=== PATIENT | female | born 1945 | race Caucasian/White ===

== ENCOUNTER 2018-11-05 05:21 | Inpatient (IN) ==
--- NOTE | 2018-10-28 15:57 | PAT Medication Instructions ---
Medication Instructions Date of Service October 29, 2018 Home Medications acetaminophen [Tylenol Arthritis Pain] 1,300 mg PO Q12H aspirin [Aspirin Low Dose] 81 mg PO HS atorvastatin 20 mg PO QAM calcium carbonate-vitamin D3 [Calcium 600 + D(3)] 1 cap PO BID celecoxib 200 mg PO QAM celecoxib [Celebrex] 200 mg PO HS fluticasone propion-salmeterol [Advair Diskus] 1 inh INHALATION Q12H hydrochlorothiazide 25 mg PO QAM montelukast 10 mg PO PM multivitamin 1 tab PO QAM olmesartan 40 mg PO QAM omeprazole 20 mg PO QAM ropinirole 2 mg PO HS ASK your surgeon for instructions aspirin [Aspirin Low Dose] 81 mg PO HS celecoxib 200 mg PO QAM & celecoxib [Celebrex] 200 mg PO HS STOP taking 24 hours before surgery ropinirole 2 mg PO HS DO NOT take the morning of surgery calcium carbonate-vitamin D3 [Calcium 600 + D(3)] 1 cap PO BID hydrochlorothiazide 25 mg PO QAM multivitamin 1 tab PO QAM olmesartan 40 mg PO QAM Take morning of surgery With a small sip of water, OTHERWISE NOTHING TO EAT OR DRINK AFTER MIDNIGHT: acetaminophen [Tylenol Arthritis Pain] 1,300 mg PO Q12H (if needed, stop 4 hours before surgery) atorvastatin 20 mg PO QAM fluticasone propion-salmeterol [Advair Diskus] 1 inh INHALATION Q12H omeprazole 20 mg PO QAM Take evening before surgery acetaminophen [Tylenol Arthritis Pain] 1,300 mg PO Q12H calcium carbonate-vitamin D3 [Calcium 600 + D(3)] 1 cap PO BID fluticasone propion-salmeterol [Advair Diskus] 1 inh INHALATION Q12H montelukast 10 mg PO PM Other Notes If you have any questions please call us at [phone] or [phone] or [phone] or [phone]
--- NOTE | 2018-10-29 08:27 | Anesthesiology Consultation ---
Date of Service October 29, 2018 Assessment & Plan (1) Encounter for pre-operative examination: - No anesthesia records re: intubation available Chart Review Chart Review: Acceptable Risk for Surgery and Patient seen in Pre Admission Testing Consults Requested none Teaching & Discussion Pre-Anesthesia Teaching/Discussion Notes: Instructed NPO after midnight before surgery, except medications with 15 cc of water. Medication instructions provided according to the PAT guidelines. History Surgery Operation Date: 11/05/18 07:00 Proposed Procedures p Right Patellectomy - Humberto Callahan MD Height/Weight Height: 4 ft 10 in Weight: 86.2 kg Allergies Allergy/AdvReac Type Severity Reaction Status Date / Time No Known Allergies Allergy Verified 10/23/18 11:54 Medications Home Medications Medication Instructions Recorded Confirmed Last Taken acetaminophen [Tylenol Arthritis 1,300 mg PO Q12H 10/23/18 10/23/18 Unknown Pain] aspirin [Aspirin Low Dose] 81 mg PO HS 10/23/18 10/23/18 Unknown atorvastatin 20 mg PO QAM 10/23/18 10/23/18 Unknown calcium carbonate-vitamin D3 1 cap PO BID 10/23/18 10/23/18 Unknown [Calcium 600 + D(3)] celecoxib 200 mg PO QAM 10/23/18 10/23/18 Unknown celecoxib [Celebrex] 200 mg PO HS 10/23/18 10/23/18 Unknown fluticasone propion-salmeterol 1 inh INHALATION Q12H 10/23/18 10/23/18 Unknown [Advair Diskus] hydrochlorothiazide 25 mg PO QAM 10/23/18 10/23/18 Unknown montelukast 10 mg PO PM 10/23/18 10/23/18 Unknown multivitamin 1 tab PO QAM 10/23/18 10/23/18 Unknown olmesartan 40 mg PO QAM 10/23/18 10/23/18 Unknown omeprazole 20 mg PO QAM 10/23/18 10/23/18 Unknown ropinirole 2 mg PO HS 10/23/18 10/23/18 Unknown Past Medical History Medical History DJD (degenerative joint disease) Restless leg syndrome Asthma Chronic pain of right knee D/T ISSUES WITH KNEE REPLACEMENT SURGERY GERD (gastroesophageal reflux disease) Hiatal hernia Hyperlipidemia Hypertension Thyroid nodule RIGHT AND LEFT NON CANCEROUS Exercise / Class Metabolic Activity II 4-5 Yardwork/Stairs/Walk up hill (Limited currently due to knee pain. Able to slowly climb stairs due to knee pain. Denies CP or SOB. ) Past Surgical History Surgical History History of cardiac cath 2006 DONE IN [place] -S/S LIGHTHEADED AND SYNCOPE - NEGATIVE STUDY - S/S WERE MEDICATION RELATED History of carpal tunnel release of both wrists History of colonoscopy History of laser refractive surgery TORN RETINA RIGHT EYE History of left knee replacement 04/22/14: "Very difficult spinal 2/2 scoliosis and arthritis. Paramedian L2-3 approach was successful." History of total right knee replacement Hx of cholecystectomy Hx of total hysterectomy Past Anesthesia History No Hx of Anesthesia Complications and No Family Hx of Anesthesia Complications History of PONV No Hx of PONV and No Hx of Motion Sickness Social History Smoking Status: Former smoker Smoking cigarettes per day: Smoked 10-15 years, ~1ppd or less Do You Dip or Chew Tobacco: No Smoking End Date: 46 YR AGO Hx Alcohol Use: No Hx Substance Use: No Review of Systems Patient denies chest pain, shortness of breath, dyspnea on exertion, cough, wheezing, palpitations. +Joint Pain (Knee, elbows) +Acid Reflux (Controlled with current medication and diet) Physical Exam Vital Signs BP: 116/84 P: 83 R: 16 T: 98.2 SPO2: 97% on RA Constitutional + obese ENMT Thyromental Distance: > or= 3.5 Finger Breadths (3.5) Mallampati Class: II Neck normal visual inspection and trachea midline; neck extension not limited Respiratory normal respiratory effort Auscultation: lungs clear to auscultation bilaterally Cardiovascular Rate/Rhythm: regular rate and regular rhythm Heart Sounds: no murmur Vessels: no carotid bruit Neurologic moves all extremities Psychiatric Orientation: alert and oriented x 3 Testing Laboratory Results 10/29/18 08:42 10/29/18 08:42 PT 10.2 Seconds (9.0-12.0) 10/29/18 08:42 INR 1.0 (0.9-1.1) 10/29/18 08:42 APTT 26.3 Seconds (21.0-31.0) 10/29/18 08:42 Urine Color Yellow 10/29/18 Unknown Urine Appearance Clear (Clear) 10/29/18 Unknown Urine pH 5.0 (4.5-7.5) 10/29/18 Unknown Ur Specific [place] 1.014 (1.000-1.030) 10/29/18 Unknown Urine Protein Negative (Negative) 10/29/18 Unknown Urine Glucose (UA) Negative (Negative) 10/29/18 Unknown Urine Ketones Negative (Negative) 10/29/18 Unknown Urine Nitrite Negative (Negative) 10/29/18 Unknown Ur Leukocyte Esterase Negative (Negative) 10/29/18 Unknown Electrocardiogram Date: 10/29/18 Findings: + NSR @ (75) When compared with ECG of 03/31/15, Criteria for Inferior infarct are no longer present T wave amplitude has increased in anterior leads QT has shortened Chest X-Ray Date: 10/29/18 Findings: + NAD FINDINGS: The bones soft tissues and hemidiaphragms are normal. The cardiomediastinal silhouette is normal. The lungs are clear. The pulmonary vasculature is normal. Fixed hiatal hernia IMPRESSION: Negative chest. Hiatal hernia
--- NOTE | 2018-10-29 09:08 | XRay Report ---
XR chest Pre-admission PA/Lat CLINICAL HISTORY: pat preoperative evaluation COMPARISON STUDY: No previous studies for comparison. FINDINGS: The bones soft tissues and hemidiaphragms are normal. The cardiomediastinal silhouette is n ormal. The lungs are clear. The pulmonary vasculature is normal. Fixed hiatal hernia IMPRESSION: Negative chest. Hiatal hernia The above report was generated using voice recognition software. It may contain grammatical, syntax or spelling errors. Electronically signed by: Derick Walsh M.D. 10/29/2018 9:07 AM
[2018-10-29 11:15] LABS: Appearance Urine Clear (Clear); Bilirubin Urine Negative (Negative); Blood Urine Negative (Negative); Color Urine Yellow; Glucose Urine UA Negative (Negative); Ketones Urine Negative (Negative); Leukocyte Esterase Urine Negative (Negative); Nitrite Urine Negative (Negative); Protein Urine Negative (Negative); Specific Gravity Urine 1.014 (1.000-1.030); Urobilinogen Urine Negative (Negative)
[2018-10-29 11:15] LABS: Eosinophils # (auto) 0.14 K/uL (0-0.5); Eosinophils % (auto) 2.8 %; Hematocrit (blood only) 41.2 % (37-47); Hemoglobin 13.5 g/dL (12.0-16.0); Immature Granulocytes # (auto) 0.01 K/uL (0.00-0.02); Immature Granulocytes % (auto) 0.2 %; Lymphocytes # (auto) 1.69 K/uL (1.2-3.4); Mean Corpuscular Hgb Conc 32.8 g/dL (32-36); Mean Corpuscular Volume 90.9 fL (80-100); Mean Platelet Volume 10.9 fL (7.4-10.4); Monocytes # (auto) 0.47 K/uL (0.11-0.59); Monocytes % (auto) 9.5 %; Neutrophils # (auto) 2.66 K/uL (1.4-6.5); Neutrophils % (auto) 53.5 %; Platelet Count 246 K/uL (130-400); RDW Coefficient of Variation 13.2 % (11.5-14.5); RDW Standard Deviation 43.8 fL (36.4-46.3); Red Blood Count 4.53 M/uL (4.2-5.4); White Blood Count 4.97 K/uL (4.8-10.8)
[2018-10-29 11:26] LABS: BUN Creatinine Ratio 24.5 (10-20); Calcium 9.6 mg/dl (8.5-10.1); Creatinine Clr Calc Pharmacy 55.4 ml/min; Est GFR (African American) 77.2; Est GFR (Non-African American) 66.6; Partial Thromboplastin Time 26.3 Seconds (21.0-31.0); Potassium 4.3 mmol/L (3.5-5.1); Prothrombin Time 10.2 Seconds (9.0-12.0)
--- NOTE | 2018-10-31 09:37 | History & Physical Report ---
Date of Service October 31, 2018 Assessment & Plan (1) Painful total knee replacement, right: Patient has ongoing anterior knee pain 3 years post total knee arthroplasty. She has a trabecular metal patella. She has failed conservative measures as above and would like to proceed with surgical intervention. Treatment options were discussed including revision patella vs patellectomy. Risks, benefits and alternatives to surgery including but not limited to infection, DVT, pain, stiffness, need for revision surgery, damage to blood vessels, damage to nerves, PE, , were discussed with the patient and they wish to proceed. Plan will be for right knee patellectomy. Plan will be for Aspirin 81mg BID x 30 days post operatively. She will plan on outpatient PT upon discharge from the hospital. She will follow up in the office post operatively. Encounter type: subsequent encounter Qualified Code(s): T84.84XD - Pain due to internal orthopedic prosthetic devices, implants and grafts, subse quent encounter; Z96.651 - Presence of right artificial knee joint History of Present Illness Chief Complaint: Right knee anterior knee pain Primary Care Provider: Alex Rosenda 72 year old female with PMHx significant for HTN, GERD, high cholesterol, restless leg, and asthma who presents with ongoing right knee pain. She is 3 years s/p right total knee arthroplasty with trabecular metal patella. She has had ongoing pain since surgery. She is having worsening pain and difficulty with normal daily activity. She has failed conservative measures including pes bursa injections, topical and oral anti-inflammatory medications, radiofrequency ablation, and arthroscopy. She has had a bone scan which was negative for loosening, as well as normal blood work. She would like to proceed with surgical intervention. Patient denies headaches, sweats, fevers, chills, double vision, blurred vision, cough, sore throat, dysphagia, chest pain, sob, wheezing, n/v/d/c, numbness, tingling, fatigue, urinary symptoms, mood disorders. ROS positive for right knee pain and stiffness. Allergies Allergy/AdvReac Type Severity Reaction Status Date / Time No Known Allergies Allergy Verified 10/23/18 11:54 Home Medications Home Medications Medication Instructions Recorded Confirmed Type acetaminophen [Tylenol Arthritis 1,300 mg PO Q12H 10/23/18 10/23/18 History Pain] aspirin [Aspirin Low Dose] 81 mg PO HS 10/23/18 10/23/18 History atorvastatin 20 mg PO QAM 10/23/18 10/23/18 History calcium carbonate-vitamin D3 1 cap PO BID 10/23/18 10/23/18 History [Calcium 600 + D(3)] celecoxib 200 mg PO QAM 10/23/18 10/23/18 History celecoxib [Celebrex] 200 mg PO HS 10/23/18 10/23/18 History fluticasone propion-salmeterol 1 inh INHALATION Q12H 10/23/18 10/23/18 History [Advair Diskus] hydrochlorothiazide 25 mg PO QAM 10/23/18 10/23/18 History montelukast 10 mg PO PM 10/23/18 10/23/18 History multivitamin 1 tab PO QAM 10/23/18 10/23/18 History olmesartan 40 mg PO QAM 10/23/18 10/23/18 History omeprazole 20 mg PO QAM 10/23/18 10/23/18 History ropinirole 2 mg PO HS 10/23/18 10/23/18 History Past Med/Surg History Medical History DJD (degenerative joint disease) Restless leg syndrome Asthma Chronic pain of right knee D/T ISSUES WITH KNEE REPLACEMENT SURGERY GERD (gastroesophageal reflux disease) Hiatal hernia Hyperlipidemia Hypertension Thyroid nodule RIGHT AND LEFT NON CANCEROUS Surgical History History of cardiac cath 2006 DONE IN [place] -S/S LIGHTHEADED AND SYNCOPE - NEGATIVE STUDY - S/S WERE MEDICATION RELATED History of carpal tunnel release of both wrists History of colonoscopy History of laser refractive surgery TORN RETINA RIGHT EYE History of left knee replacement 04/22/14: "Very difficult spinal 2/2 scoliosis and arthritis. Paramedian L2-3 approach was successful." History of total right knee replacement Hx of cholecystectomy Hx of total hysterectomy Social History Preferred Language: Amharic Communication Ability: Effective Beliefs That Will Affect Care: None Current Living Situation: Spouse Feels Safe at Home: Yes Safety Concerns: Feels Safe At This Time Smoking Status: Former smoker Cigarettes Per Day: Smoked 10-15 years, ~1ppd or less Do You Dip or Chew Tobacco: No Smoking End Date: 44 YR AGO Second Hand Exposure: No Hx Alcohol Use: No Hx Substance Use: No Review of Systems All systems reviewed & are unremarkable except as noted in HPI & below Physical Exam Constitutional: well developed and well nourished; no acute distress Eyes: PERRL, conjunctivae normal, anicteric sclerae ENMT: external ear and nose normal, oropharynx normal Neck: trachea midline, no thyromegaly Respiratory: normal respiratory effort, lungs clear to auscultation Cardiovascular: RRR, no murmur, no edema Musculoskeletal: Right knee-Well healed incision. ROM 0-125, diffuse tenderness. Pain with patellar grind. She is stable to valgus and varus stress. Mild extensor lag. Skin: no rashes, warm and dry Neurologic: patellar DTR's 2+ bilat, sensation intact Psychiatric: A+Ox3, euthymic affect Results & Data Laboratory Results Lab Results 10/29/18 10/29/18 10/29/18 Range/Units 08:42 08:42 08:42 WBC 4.97 (4.8-10.8) K/uL RBC 4.53 (4.2-5.4) M/uL Hgb 13.5 (12.0-16.0) g/dL Hct 41.2 (37-47) % MCV 90.9 (80-100) fL MCH 29.8 (25-34) pg MCHC 32.8 (32-36) g/dL RDW Std Deviation 43.8 (36.4-46.3) fL RDW Coeff of Melina 13.2 (11.5-14.5) % Plt Count 246 (130-400) K/uL MPV 10.9 H (7.4-10.4) fL Immature Gran % (Auto) 0.2 % Neut % (Auto) 53.5 % Lymph % (Auto) 34.0 % [place] % (Auto) 9.5 % Eos % (Auto) 2.8 % Baso % (Auto) 0.0 % Immature Gran # (Auto) 0.01 (0.00-0.02) K/uL Neut # (Auto) 2.66 (1.4-6.5) K/uL Lymph # (Auto) 1.69 (1.2-3.4) K/uL [place] # (Auto) 0.47 (0.11-0.59) K/uL Eos # (Auto) 0.14 (0-0.5) K/uL Baso # (Auto) 0.00 (0-0.2) K/uL PT 10.2 (9.0-12.0) Seconds INR 1.0 (0.9-1.1) APTT 26.3 (21.0-31.0) Seconds PTT Ratio 1.0 Sodium 141 (136-145) mmol/L Potassium 4.3 (3.5-5.1) mmol/L Chloride 106 (98-107) mmol/L Carbon Dioxide 28 (21-32) mmol/L Anion Gap 7.0 (3-11) BUN 22 H (7-18) mg/dl Creatinine 0.88 (0.6-1.2) mg/dl Est Cr Clr Drug Dosing 55.4 ml/min Est GFR ( Amer) 77.2 Est GFR (Non-Af Amer) 66.6 BUN/Creatinine Ratio 24.5 H (10-20) Glucose 88 (70-99) mg/dl Calcium 9.6 (8.5-10.1) mg/dl Urine Color Urine Appearance (Clear) Urine pH (4.5-7.5) Ur Specific [place] (1.000-1.030) Urine Protein (Negative) Urine Glucose (UA) (Negative) Urine Ketones (Negative) Urine Blood (Negative) Urine Nitrite (Negative) Urine Bilirubin (Negative) Urine Urobilinogen (Negative) Ur Leukocyte Esterase (Negative) 10/29/18 Range/Units Unknown WBC (4.8-10.8) K/uL RBC (4.2-5.4) M/uL Hgb (12.0-16.0) g/dL Hct (37-47) % MCV (80-100) fL MCH (25-34) pg MCHC (32-36) g/dL RDW Std Deviation (36.4-46.3) fL RDW Coeff of Melina (11.5-14.5) % Plt Count (130-400) K/uL MPV (7.4-10.4) fL Immature Gran % (Auto) % Neut % (Auto) % Lymph % (Auto) % [place] % (Auto) % Eos % (Auto) % Baso % (Auto) % Immature Gran # (Auto) (0.00-0.02) K/uL Neut # (Auto) (1.4-6.5) K/uL Lymph # (Auto) (1.2-3.4) K/uL [place] # (Auto) (0.11-0.59) K/uL Eos # (Auto) (0-0.5) K/uL Baso # (Auto) (0-0.2) K/uL PT (9.0-12.0) Seconds INR (0.9-1.1) APTT (21.0-31.0) Seconds PTT Ratio Sodium (136-145) mmol/L Potassium (3.5-5.1) mmol/L Chloride (98-107) mmol/L Carbon Dioxide (21-32) mmol/L Anion Gap (3-11) BUN (7-18) mg/dl Creatinine (0.6-1.2) mg/dl Est Cr Clr Drug Dosing ml/min Est GFR ( Amer) Est GFR (Non-Af Amer) BUN/Creatinine Ratio (10-20) Glucose (70-99) mg/dl Calcium (8.5-10.1) mg/dl Urine Color Yellow Urine Appearance Clear (Clear) Urine pH 5.0 (4.5-7.5) Ur Specific [place] 1.014 (1.000-1.030) Urine Protein Negative (Negative) Urine Glucose (UA) Negative (Negative) Urine Ketones Negative (Negative) Urine Blood Negative (Negative) Urine Nitrite Negative (Negative) Urine Bilirubin Negative (Negative) Urine Urobilinogen Negative (Negative) Ur Leukocyte Esterase Negative (Negative) Diagnostic Findings Right knee bone scan-Mayra. Right knee radiographs: cemented total knee arthroplasty in good position, patella stable
[2018-11-05] MEDS ORDERED: LR 500ML BOLUS, THEN 15ML/HR IV SCH (06:00)
[2018-11-05] MEDS ORDERED: CEFAZOLIN 2000MG 2,000 MG/15 ML SYR IV SCH (06:00)
[2018-11-05] MEDS ORDERED: MIDAZOLAM HCL 1 MG/ML 2ML VIAL ONE (06:31)
[2018-11-05] MEDS ORDERED: fentaNYL citrate 100 MCG/2 ML VIAL ONE ×2 (06:31→08:10)
[2018-11-05] MEDS ORDERED: PROPOFOL IV EMULSION 10 MG/ML 20 ML VIAL IV ONE (06:47)
[2018-11-05] MEDS ORDERED: LIDOCAINE HCL 2% 2 ML VIAL/AMP(20MG/ML) INFIL ONE (06:47)
--- NOTE | 2018-11-05 06:54 | History & Physical Bridge Note ---
Date of Service November 05, 2018 History & Physical Bridge Note I have examined the patient, reviewed the History & Physical and in the interval since the performance of the History & Physical I have noted the following changes of clinical significance: no changes noted
[2018-11-05] MEDS ORDERED: ATROPINE SULFATE 0.1 MG/ML 10ML SYR IV PRN (07:12)
[2018-11-05] MEDS ORDERED: KETOROLAC 30 MG/ML VIAL IV PRN (07:12)
[2018-11-05] MEDS ORDERED: ONDANSETRON INJ 2 MG/ML 2 ML VIAL IV PRN ×2 (07:12→10:00)
[2018-11-05] MEDS ORDERED: HYDROmorphone INJ 1 MG/ML SYRINGE IV PRN (07:12)
[2018-11-05] MEDS ORDERED: LABETALOL HCL IV 5 MG/ML 20ML IV PRN (07:12)
[2018-11-05] MEDS ORDERED: BACITRACIN INJ 50,000 UNIT VIAL ONE (07:15)
[2018-11-05] MEDS ORDERED: BUPIVACAINE/EPINEPHRINE 0.5% MPF 1:200,000 30 ML VIAL ONE (07:15)
[2018-11-05] MEDS ORDERED: ROPIVACAINE 0.5% 5 MG/ML 30 ML VIAL ONE (07:36)
[2018-11-05] MEDS ORDERED: ONDANSETRON INJ 2 MG/ML 2 ML VIAL ONE (08:13)
[2018-11-05] MEDS ORDERED: PHENYLEPHRINE 100MCG/ML 5ML SYR ONE (08:18)
--- NOTE | 2018-11-05 08:45 | Operative Report ---
Post Operative Report Pre & Post Diagnosis Operation Date: 11/05/18 08:00 Pre-Op Diagnosis: Painful Patella, s/p Right Total Knee Arthroplasty Post-Op Diagnosis: Loose patellar component Procedure Operation Date: 11/05/18 08:00 Actual Procedures p Right Patellectomy(Right) - Humberto Callahan MD Surgeon Humberto Callahan MD [employer] Agent Flip Syed PA-C Estimated Blood Loss 2 Findings Consistent with Post-Op Diagnosis Specimens none Drains none Anesthesia Type General Regional Complications none Disposition Accompanied Patient To Recovery: No Disposition: Recovery Room Indications The patient is a 73-year-old female who had previously undergone a right total knee arthroplasty. During her arthroplasty her patella bone was relatively soft and while we were drilling for the pegs for her patellar component there was a crack that established between 2 of the drill holes. At the time he did not feel that I would be able to get a stable standard cemented patellar component i nto place. I therefore implanted a trabecular metal backed patella. Her wound healed well. There was never any issues with infection. She had persistent patellofemoral pain. Her infection work-up including sed rate, CRP was negative. On physical exam the patella component felt stable. It appeared to be in good a good stable position on x-ray. She has failed conservative measures including nonsteroidal anti-inflammatories, topical anti-inflammatories and physical therapy. She also underwent arthroscopic debridement with lateral release. She also went through radiofrequency nerve ablation around the knee without relief of her symptoms. We discussed various treatment measures including revision of her patella component versus patellectomy. My concern is that she has already had the revision style patella component that I would use for a revision of the patella. And if this has failed once I would be concerned that she would fail again and continue to have pain. We discussed the loss of strength as well as extension lag that she likely have after a removal of the patella. She voices understanding wishes to proceed. Description of Procedure Risks benefits and alternatives of surgery including but not limited to infection, DVT, pain, stiffness, need for surgery, damage to blood vessels, damage to nerves or risks of anesthesia were discussed with the patient and they wished to proceed. The patient was identified and the laterality was confirmed and marked. They received a preoperative antibiotic as well as a spinal anesthetic and an abductor canal block. A well-padded tourniquet was applied and then the limb was prepped and draped in standard manner with ChloraPrep. The limb was exsanguinated and the tourniquet was inflated. I made a standard anterior incision. I sharply incised the skin then utilized Bovie electrocautery to achieve hemostasis. I identified the FiberWire suture knots that had been used to fix the trabecular metal patella into position. I cut these knots out. I then made a medial parapatellar arthrotomy. There was no purulence in the joint. There was a small amount of normal joint fluid. The patella component appeared to be loose. There was some healing to the tissues on the lateral side but centrally and medially it appeared that the trabecular metal had not ingrown into the tissues. There were a few remaining FiberWire sutures that need to be cut and then I debrided the tissue that was adherent on the lateral side of the patella and then excised the patellar component. The wound was then thoroughly irrigated. A Betadine soak was performed. The arthrotomy was closed with interrupted #1 Vicryl suture. The subcutaneous tissue was closed with interrupted 2-0 Vicryl suture. The skin was closed with mahad. A Silverlon dressing was applied. All needle and sponge counts were correct at the end of the procedure patient was transferred to the PACU in stable condition without apparent complication. The PA-C was necessary for assistance with procedure for assistance in positioning, prepping, draping, retraction and closure. I attest to the content of the Intraoperative Record and any orders documented therein. Any exceptions are noted below.
--- NOTE | 2018-11-05 09:38 | XRay Report ---
XR knee RT 2V routine CLINICAL HISTORY: Postop examination. COMPARISON: 06/23/2015 DISCUSSION: There are postsurgical changes of a total right knee arthroplasty. The patient appears to be status post a patellectomy. There are small calcifications proximal and distal to the expected si te of the patella. There are overlying skin mahad present. There is air within the soft tissues con sistent with recent surgery. IMPRESSION: Total knee arthroplasty. Apparent interval resection of the patella Electronically signed by: Collin Alfaro M.D. 11/05/2018 9:37 AM
--- NOTE | 2018-11-05 09:45 | Anesthesiology Progress Note ---
Date of Service November 05, 2018 Anesthesia Post Procedure Vital Signs Vital Signs: Temp Pulse Pulse Pulse Resp BP BP 11/05/18 09:35 84 16 134/79 11/05/18 09:31 84 12 123/82 11/05/18 09:30 85 17 11/05/18 09:26 85 23 122/83 11/05/18 09:25 84 16 11/05/18 09:20 84 13 145/85 H 11/05/18 09:18 85 14 144/90 H 11/05/18 09:16 85 16 144/90 H 11/05/18 09:15 89 21 11/05/18 09:10 36.4 C L 89 91 H 13 123/78 123/78 11/05/18 06:02 36.8 C 88 20 161/106 H Pulse Ox 11/05/18 09:35 99 11/05/18 09:31 99 11/05/18 09:30 100 11/05/18 09:26 11/05/18 09:25 99 11/05/18 09:20 11/05/18 09:18 100 11/05/18 09:16 100 11/05/18 09:15 11/05/18 09:10 100 11/05/18 06:02 96 Pain Intensity Right Leg: Pain Intensity: 0 Transfer of Care Handoff Completed per policy Notes Mental Status: alert / awake / arousable Patient Amnestic to Procedure: Yes Nausea / Vomiting: adequately controlled Pain: adequately controlled Airway Patency, RR, SpO2: stable & adequate BP & HR: stable & adequate Hydration State: stable & adequate Anesthetic Complications: no major complications apparent
[2018-11-05] MEDS ORDERED: HYDROmorphone INJ 0.5 MG/0.5 ML SYR IV PRN (10:00)
[2018-11-05] MEDS ORDERED: NALOXONE HCL 0.4 MG/1 ML VIAL/CARP IV PRN (10:00)
[2018-11-05] MEDS ORDERED: BISACODYL 10 MG SUPP PR PRN (10:00)
[2018-11-05] MEDS ORDERED: SODIUM CHLORIDE 0.9% 1000ML 1,000 ML IV SCH (10:00)
[2018-11-05] MEDS ORDERED: MAGNESIUM HYDROXIDE SUSP 30 ML UDC PO PRN (10:00)
[2018-11-05] MEDS: OXYCODONE HCL IR 5 MG TAB (IMMEDIATE RELEASE) PO PRN ×2 (11:11→20:46)
[2018-11-05] MEDS: FLUTICASONE/SALMETEROL 250/50 (ADVAIR) 14 PUFF/1 INHALER INH SCH ×2 (11:11→20:44)
[2018-11-05] MEDS: ACETAMINOPHEN 500 MG TAB PO SCH ×2 (14:23→20:43)
[2018-11-05] MEDS: CEFAZOLIN 2000MG 2,000 MG/15 ML SYR IV SCH (17:13)
[2018-11-05] MEDS: DOCUSATE SODIUM 100 MG CAP PO SCH (20:43)
[2018-11-05] MEDS: CALCIUM 600MG + VIT D 400 IU TAB PO SCH (20:44)
[2018-11-05] MEDS: ASPIRIN 81 MG ECTAB PO SCH (20:44)
[2018-11-05] MEDS ORDERED: SENNA 8.6 MG TAB PO SCH (21:00)
[2018-11-05] MEDS ORDERED: CeleBREX 200 MG CAP PO SCH (21:00)
[2018-11-05] MEDS ORDERED: ROPINIROLE HCL 1 MG TABLET PO SCH (21:00)
[2018-11-05] MEDS ORDERED: MONTELUKAST SODIUM 10 MG TABLET PO SCH (21:00)
[2018-11-06] MEDS: CEFAZOLIN 2000MG 2,000 MG/15 ML SYR IV SCH (00:23)
[2018-11-06] MEDS: ACETAMINOPHEN 500 MG TAB PO SCH (05:38)
[2018-11-06 06:29] LABS: Hematocrit (blood only) 36.9 % (37-47); Mean Corpuscular Hgb Conc 32.5 g/dL (32-36); Mean Corpuscular Volume 91.8 fL (80-100); Mean Platelet Volume 10.4 fL (7.4-10.4); Platelet Count 205 K/uL (130-400); RDW Standard Deviation 43.9 fL (36.4-46.3); Red Blood Count 4.02 M/uL (4.2-5.4); White Blood Count 5.87 K/uL (4.8-10.8)
[2018-11-06 07:01] LABS: Calcium 9.5 mg/dl (8.5-10.1); Est GFR (African American) 77.7; Potassium 4.1 mmol/L (3.5-5.1)
--- NOTE | 2018-11-06 07:08 | Orthopedic Progress Note ---
Date of Service November 06, 2018 Assessment & Plan (1) Painful total knee replacement, right: POD#1 Patellecetomy -PT/OT-WBAT -DVT prophylaxis-ASA 81mg BID x 30 days -Pain management -D/C planning-home with OPPT upon discharge. Discharge today after PT. Subjective Patient is postop day 1 right knee patellectomy. Seen sitting in bedside chair. She is doing well. Pain well controlled. No complaints. No chest pain, sob, nieves, dizziness, fever, chills. Review of Systems Review of Systems: All systems reviewed & are unremarkable except as noted in HPI & below Physical Exam Physical Exam: Right knee dressing c/d/i, no calf tenderness, toes mobile. Sensation and n/v status intact. Results & Data Vital Signs (Past 12 Hours) Vital Signs Temp Pulse Resp BP BP Pulse Ox 11/06/18 02:41 36.5 C 76 16 138/82 96 11/05/18 23:08 36.5 C 78 16 122/77 97 11/05/18 19:23 36.6 C 75 17 119/79 98 (1) Painful total knee replacement, right Encounter type: subsequent encounter Qualified Code(s): T84.84XD - Pain due to internal orthopedic prosthetic devices, implants and grafts, subsequent encounter; Z96.651 - Presence of right artificial knee joint
[2018-11-06] MEDS: FLUTICASONE/SALMETEROL 250/50 (ADVAIR) 14 PUFF/1 INHALER INH SCH (08:50)
[2018-11-06] MEDS: DOCUSATE SODIUM 100 MG CAP PO SCH (08:51)
[2018-11-06] MEDS: CALCIUM 600MG + VIT D 400 IU TAB PO SCH (08:51)
[2018-11-06] MEDS: ASPIRIN 81 MG ECTAB PO SCH (08:51)
[2018-11-06] MEDS ORDERED: PANTOprazole 40 MG TAB PO SCH (09:00)
[2018-11-06] MEDS ORDERED: MULTIVITAMIN TAB PO SCH ×2 (09:00)
[2018-11-06] MEDS ORDERED: CeleBREX 200 MG CAP PO SCH (09:00)
[2018-11-06] MEDS ORDERED: ATORVASTATIN 20 MG TAB PO SCH (09:00)
[2018-11-06] MEDS ORDERED: OLMESARTAN MEDOXOMIL 40 MG TAB PO SCH (09:00)
[2018-11-06] MEDS ORDERED: hydroCHLOROthiazide 25 MG TAB PO SCH (09:00)
--- NOTE | 2018-11-07 11:21 | Discharge Summary ---
Date of Service November 07, 2018 Admission HPI Per Admitting Provider 72 year old female with PMHx significant for HTN, GERD, high cholesterol, restless leg, and asthma who presents with ongoing right knee pain. She is 3 years s/p right total knee arthroplasty with trabecular metal patella. She has had ongoing pain since surgery. She is having worsening pain and difficulty with normal daily activity. She has failed conservative measures including pes bursa injections, topical and oral anti-inflammatory medications, radiofrequency ablation, and arthroscopy. She has had a bone scan which was negative for loosening, as well as normal blood work. She would like to proceed with surgical intervention. Patient denies headaches, sweats, fevers, chills, double vision, blurred vision, cough, sore throat, dysphagia, chest pain, sob, wheezing, n/v/d/c, numbness, tingling, fatigue, urinary symptoms, mood disorders. ROS positive for right knee pain and stiffness. Admission Exam Per Admitting Provider Constitutional: well developed and well nourished; no acute distress Eyes: PERRL, conjunctivae normal, anicteric sclerae ENMT: external ear and nose normal, oropharynx normal Neck: trachea midline, no thyromegaly Respiratory: normal respiratory effort, lungs clear to auscultation Cardiovascular: RRR, no murmur, no edema Musculoskeletal: Right knee-Well healed incision. ROM 0-125, diffuse tendern ess. Pain with patellar grind. She is stable to valgus and varus stress. Mild extensor lag. Skin: no rashes, warm and dry Neurologic: patellar DTR's 2+ bilat, sensation intact Psychiatric: A+Ox3, euthymic affect Principal Diagnosis Painful right total knee Discharge Exam Constitutional well developed and well nourished; no acute distress Eyes PERRL, conjunctivae normal, anicteric sclerae ENMT external ear and nose normal, oropharynx normal Neck trachea midline, no thyromegaly Respiratory normal respiratory effort, lungs clear to auscultation Cardiovascular RRR, no murmur, no edema Skin no rashes, warm and dry Neurologic patellar DTR's 2+ bilat, sensation intact Psychiatric A+Ox3, euthymic affect Discharge Data Allergies Allergy/AdvReac Type Severity Reaction Status Date / Time No Known Allergies Allergy Verified 11/05/18 05:57 Consultations 11/05/18 10:00 Consult Case Management - Discharge Planning Routine Procedures Performed Operation Date: 11/05/18 08:00 Actual Procedures p Right Patellectomy(Right) - Humberto Callahan MD Ordered Studies 11/05/18 05:00 US - OR guided needle placemen Routine Hospital Course (1) Painful total knee replacement, right: Patient presented for same day admission following right knee patellectomy on 11/05/18. She tolerated procedure well. The Patient had an uneventful hospital course. Post-operatively, her activity was progressed and well tolerated. They participated in PT with ambulation distance of 275 feet. ROM of operative knee r eached 85 degrees. Labs remained stable- lowest hemoglobin recorded: 12. Pain controlled on oral medications. Please refer to daily progress notes and PT notes for complete details. After exam on 11/06/18, patient was felt to be stable for discharge home with plans on attending outpatient PT. Patient will f/u in the office in about 2 weeks for further evaluation including x-rays and incision check, sooner if having any issues or concerns. Lab Results 10/29/18 10/29/18 10/29/18 Range/Units 08:42 08:42 08:42 WBC 4.97 (4.8-10.8) K/uL RBC 4.53 (4.2-5.4) M/uL Hgb 13.5 (12.0-16.0) g/dL Hct 41.2 (37-47) % MCV 90.9 (80-100) fL MCH 29.8 (25-34) pg MCHC 32.8 (32-36) g/dL RDW Std Deviation 43.8 (36.4-46.3) fL RDW Coeff of Melina 13.2 (11.5-14.5) % Plt Count 246 (130-400) K/uL MPV 10.9 H (7.4-10.4) fL Immature Gran % (Auto) 0.2 % Neut % (Auto) 53.5 % Lymph % (Auto) 34.0 % [place] % (Auto) 9.5 % Eos % (Auto) 2.8 % Baso % (Auto) 0.0 % Immature Gran # (Auto) 0.01 (0.00-0.02) K/uL Neut # (Auto) 2.66 (1.4-6.5) K/uL Lymph # (Auto) 1.69 (1.2-3.4) K/uL [place] # (Auto) 0.47 (0.11-0.59) K/uL Eos # (Auto) 0.14 (0-0.5) K/uL Baso # (Auto) 0.00 (0-0.2) K/uL PT 10.2 (9.0-12.0) Seconds INR 1.0 (0.9-1.1) APTT 26.3 (21.0-31.0) Seconds PTT Ratio 1.0 Sodium 141 (136-145) mmol/L Potassium 4.3 (3.5-5.1) mmol/L Chloride 106 (98-107) mmol/L Carbon Dioxide 28 (21-32) mmol/L Anion Gap 7.0 (3-11) BUN 22 H (7-18) mg/dl Creatinine 0.88 (0.6-1.2) mg/dl Est Cr Clr Drug Dosing 55.4 ml/min Est GFR ( Amer) 77.2 Est GFR (Non-Af Amer) 66.6 BUN/Creatinine Ratio 24.5 H (10-20) Glucose 88 (70-99) mg/dl Calcium 9.6 (8.5-10.1) mg/dl Urine Color Urine Appearance (Clear) Urine pH (4.5-7.5) Ur Specific [place] (1.000-1.030) Urine Protein (Negative) Urine Glucose (UA) (Negative) Urine Ketones (Negative) Urine Blood (Negative) Urine Nitrite (Negative) Urine Bilirubin (Negative) Urine Urobilinogen (Negative) Ur Leukocyte Esterase (Negative) 10/29/18 11/06/18 11/06/18 Range/Units Unknown 06:11 06:11 WBC 5.87 (4.8-10.8) K/uL RBC 4.02 L (4.2-5.4) M/uL Hgb 12.0 (12.0-16.0) g/dL Hct 36.9 L (37-47) % MCV 91.8 (80-100) fL MCH 29.9 (25-34) pg MCHC 32.5 (32-36) g/dL RDW Std Deviation 43.9 (36.4-46.3) fL RDW Coeff of Melina 13.0 (11.5-14.5) % Plt Count 205 (130-400) K/uL MPV 10.4 (7.4-10.4) fL Immature Gran % (Auto) % Neut % (Auto) % Lymph % (Auto) % [place] % (Auto) % Eos % (Auto) % Baso % (Auto) % Immature Gran # (Auto) (0.00-0.02) K/uL Neut # (Auto) (1.4-6.5) K/uL Lymph # (Auto) (1.2-3.4) K/uL [place] # (Auto) (0.11-0.59) K/uL Eos # (Auto) (0-0.5) K/uL Baso # (Auto) (0-0.2) K/uL PT (9.0-12.0) Seconds INR (0.9-1.1) APTT (21.0-31.0) Seconds PTT Ratio Sodium 140 (136-145) mmol/L Potassium 4.1 (3.5-5.1) mmol/L Chloride 105 (98-107) mmol/L Carbon Dioxide 32 (21-32) mmol/L Anion Gap 3.0 (3-11) BUN 19 H (7-18) mg/dl Creatinine 0.87 (0.6-1.2) mg/dl Est Cr Clr Drug Dosing 55.0 ml/min Est GFR ( Amer) 77.7 Est GFR (Non-Af Amer) 67.0 BUN/Creatinine Ratio 22.0 H (10-20) Glucose 107 H (70-99) mg/dl Calcium 9.5 (8.5-10.1) mg/dl Urine Color Yellow Urine Appearance Clear (Clear) Urine pH 5.0 (4.5-7.5) Ur Specific [place] 1.014 (1.000-1.030) Urine Protein Negative (Negative) Urine Glucose (UA) Negative (Negative) Urine Ketones Negative (Negative) Urine Blood Negative (Negative) Urine Nitrite Negative (Negative) Urine Bilirubin Negative (Negative) Urine Urobilinogen Negative (Negative) Ur Leukocyte Esterase Negative (Negative) Total Time Total Time Spent Total Time Spent (In Minutes): 20 Discharge Plan Discharge Items Patient Disposition: Home - Self-Care Reason For Visit: Pain in Right Knee Discharge Diagnosis: Painful right total knee Discharge Goals: Decrease discomfort and Improve function Activity: Per 'Additional Instructions' section Non-emergency contact: Surgeon Call non-emergency contact if: you have any medication questions, your pain is not controlled, your pain is concerning for you, you have a fever, your temperature is above 101, your wound has increased redness and your wound has increased drainage Follow-up/Referrals: Alex Herzog [Primary Care Provider] - Diet: Regular Addtl Provider Instructions: ACTIVITY RECOMMENDATIONS: SELF CARE INSTRUCTIONS AFTER RIGHT KNEE SURGERY A. You may need to continue a physical therapy program after discharge from the hospital. There are several options available to you. Your doctor will assist you in selecting the best one for you. 1. An out-patient facility 2 to 3 times a week for therapy or home therapy. 2. Continue working on all exercises taught to you in the hospital. Your goals should be to increase bending of your knee to 90 degrees and beyond and to fully straighten your knee. B. You may progress at your own pace from walking with a walker or crutches to a cane; then to no assistive devices. C. Make walking a part of your daily routine. Be up as much as comfortable with rest periods throughout the day. Rest with leg elevation is very important. Use the ice wrap frequently for the first 3-4 weeks. D. There are no restrictions on activities. You may ride in a car, shop, participate in illusionist and all social activities. E. Wear the long elastic stockings (CHRISTIANO hose) 20 hours a day for 2 weeks after surgery. They can be removed several times a day for laundering and for a bath. F. You may shower, no tub baths until cleared by your doctor. SPECIAL CARE INSTRUCTIONS: VERY IMPORTANT TO READ AND REVIEW A. There are a few signs you need to watch for after you are home. Call [facility] if you notice any of the followin. Increased severe knee pain. Some pain is expected especially when you exercise. 2. Increased swelling in your leg or knee; pain or swelling of the calf muscle in either lower leg. 3. Any fluid drainage from the incision. 4. Shortness of breath or chest pain. B. Please call [facility] at if you have any concerns or questions about your operation or recovery. The doctor or his nurse will return your call promptly. C. You must take antibiotics before dental work, bladder, bowel or other surgery. Your doctor will provide you with a permanent care to carry describing this precaution. IMPORTANT: * REMEMBER TO TAKE ASPIRIN, 81 MG, TWICE DAILY FOR 4 WEEKS UNLESS OTHERWISE DIRECTED. THIS IS YOUR BLOOD THINNER. * HIGH RISK PATIENTS MAY BE PRESCRIBED A STRONGER BLOOD THINNER. THIS WILL BE PROVIDED AT DISCHARGE. * CALL IF INCREASED PAIN, REDNESS, DRAINAGE OR FEVER GREATER THAT 101. * WEAR CHRISTIANO HOSE 20 HOURS PER DAY FOR 2 WEEKS. * YOU MAY HAVE A LARGE BAND-AID LIKE DRESSING (SILVERON). THIS WILL REMAIN ON YOUR INCISION FOR 7 DAYS, THEN CAN BE REMOVED. IF INCISION IS LEAKING THROUGH DRESSING, CALL THE OFFICE . This is a large adhesive bandage that contains silver ions. This helps your incision heal by fighting off bacteria and protecting it from the outside environment. You are permitted to shower with this dressing. This will remain on your incision for 7 days and then should be removed. Some visible blood or drainage through the dressing window is normal. If there is significant drainage or leaking noted before the 7 days notify your doctor's office immediately. Once removed, keep incision clean and dry. If there is any drainage or redness noted, please call your surgeon. FOLLOW UP VISIT: If appointment is not already scheduled: Please call [facility] to make a follow-up appointment for 2 weeks after your surgery at . Prescriptions: New aspirin [Ecotrin Low Strength] 81 mg Tablet,Delayed Release (Dr/Ec) 81 mg PO BID Qty: 60 RF: 0 oxycodone-acetaminophen [Percocet] 5-325 mg tablet 1 - 2 tab PO .Q4H-6H MDD 6 PRN (Reason: pain) Qty: 30 RF: 0 Continued multivitamin Tablet 1 tab PO QAM RF: 0 celecoxib 200 mg Capsule 200 mg PO QAM RF: 0 celecoxib [Celebrex] 200 mg Capsule 200 mg PO HS RF: 0 fluticasone propion-salmeterol [Advair Diskus] 250-50 mcg/dose Blister With Device 1 inh INHALATION Q12H RF: 0 atorvastatin 20 mg Tablet 20 mg PO QAM RF: 0 ropinirole 2 mg Tablet 2 mg PO HS RF: 0 montelukast 10 mg Tablet 10 mg PO PM RF: 0 hydrochlorothiazide 25 mg Tablet 25 mg PO QAM RF: 0 olmesartan 40 mg Tablet 40 mg PO QAM RF: 0 Calcium 600 + D(3) 600 mg calcium- 200 unit Capsule 1 cap PO BID RF: 0 omeprazole 20 mg Tablet,Disintegrat, Delay Rel 20 mg PO QAM RF: 0 Discontinued aspirin [Aspirin Low Dose] 81 mg Tablet,Delayed Release (Dr/Ec) 81 mg PO HS RF: 0 acetaminophen [Tylenol Arthritis Pain] 650 mg Tablet Extended Release 1,300 mg PO Q12H RF: 0 Stand-Alone Forms: [employer] [facility] [employer], [facility]/Other Patient Handouts: Post Op Pain Manage Home Meds Discharge Orders: Discharge Order (Routine); Ordered 11/06/18 Ordered By: Flip Syed Admission Data Admit Date/Time: 11/05/18 09:21 Attending Provider: Humberto Callahan Admit Provider: Humberto Callahan Primary Care Provider: Alex Herzog Service: Surgical Services Other Interventions: Discharge Summary Assessment (RN) Last Done: 11/06/18 09:55 DC Date/Time DO NOT enter until pt leaves facility: 11/06/18 12:19
== END 2018-11-06 12:19 | disposition home or self-care (01) | DRG 465 ==
LOC: ASU 05:21 → 3E 09:21
DX: Z87.891 Personal history of nicotine dependence; J45.909 Unspecified asthma, uncomplicated; Z79.899 Other long term (current) drug therapy; Z79.1 Long term (current) use of non-steroidal anti-inflammatories (NSAID); G25.81 Restless legs syndrome; Z79.51 Long term (current) use of inhaled steroids; I10 Essential (primary) hypertension; E78.00 Pure hypercholesterolemia, unspecified; Z79.82 Long term (current) use of aspirin; T84.032A Mechanical loosening of internal right knee prosthetic joint, initial encounter; K21.9 Gastro-esophageal reflux disease without esophagitis; Z96.653 Presence of artificial knee joint, bilateral; Y79.2 Prosthetic and other implants, materials and accessory orthopedic devices associated with adverse incidents